=== PATIENT | male | born 1975 | race Caucasian/White ===

== ENCOUNTER 2016-11-08 20:05 | Inpatient (IN) | payer OTHER ==
[~2016-11-08] VITALS: Ht 165.1 cm; Wt 81.2 kg
--- NOTE | ~2016-11-08 | EKG ---
[address] [address] ELECTROCARDIOGRAM REPORT Name: MAJO NEELY Room #: 440-P ADM IN M.R.#: [id number] Admission: 11/08/16 Attend Phys: Ernestina Palomo MD Discharge: Date of : 73 Report #: [id number] THIS REPORT FOR: //name// [facility] ED Test Date: 2016-11-08 Test Time: 21:36:43 Pat Name: MAJO NEELY Department: Room: 440 P Gender: M Manager Hotel: [place] : 1975 Requested By: Coby Powell Order Number: [id number] MD: Wesley Cunningham Measurements Intervals [place] Rate: 87 P: 62 DE: 193 QRS: 54 QRSD: 87 T: 65 QT: 364 QTc: 438 Interpretive Statements Sinus rhythm RSR' in V1 or V2, probably normal variant No previous ECG available for comparison Electronically Signed On 11-10-2016 8:49:22 CDT by Wesley Cunningham [email or web address] <ELECTRONICALLY SIGNED> By: Wesley Cunningham MD 11/10/16 0849 [id number] 35 Wesley Cunningham MD /YVES
--- NOTE | ~2016-11-08 | S ---
[facility] [place] [address] [place] [address] SURGICAL PATH RPT PROCEDURE Name: MAJO NEELY Room #: 440-P [facility] IN M.R.#: [id number] Admission: 11/08/16 Date of : 73 Discharge: 11/10/16 Report #: [id number] Path Case #: [id number] PATHOLOGY REPORT COLLECTION DATE: 11/10/2016 RECEIVED DATE: 11/10/2016 SUBMITTING PHYS: Dr. Anjelica Russell OTHER PHYS: Dr. Chio Thorne SPECIMEN(S) RECEIVED: A.Peripheral smear * * * * * * * * * * * * FINAL DIAGNOSIS: Peripheral blood smear: - Mild to moderate thrombocytopenia. (See comment). COMMENT: Overall, the peripheral blood has mild to moderate thrombocytopenia. Hemoglobin and WBC counts are within the normal reference ranges. The WBC differential is without marked abnormalities. No platelet clumps or satellitosis is seen on scanning. The etiology of the findings is unclear based entirely on slide review. Potential causes of thrombocytopenia include immune and non-immune platelet destruction, drug and/or toxic exposures, consumption, dilution and primary bone marrow disorders. Correlation with clinical history and additional laboratory is recommended. PATHOLOGIST: Monika Johnston M.D. REPORT ELECTRONICALLY SIGNED BY: Monika Johnston M.D. DATE/TIME: 11/10/2016 23:10 * * * * * * * * * * * * MICROSCOPIC DESCRIPTION: CBC Data (11/10/16): WBC 8,300 /uL, RBC 4.19, hemoglobin 12.3 g/dL, hematocrit 37.0%, MCV 88.4 fL, MCH 29.4 pg, MCHC 33.3 g/dL, RDW 14.3% and platelet count 99,000 /uL. Automated white blood cell differential (11/08/16): segs 75.9%, lymphs 15.5%, monos 6.0%, eos 1.9% and basos 0.7%. Peripheral Blood Smear: Cytomorphological examination of the Ramirez stained peripheral blood smear confirms the provided data. Red blood cells are normocytic and are without significant anisopoikilocytosis. White blood cells are predominantly segmented neutrophils and are without significant dyspoiesis or significant left shift. Occasional hypersegmented [address] [address] SURGICAL PATH RPT PROCEDURE Name: MAJO NEELY Room #: 440-P [facility] IN M.R.#: [id number] Admission: 11/08/16 Date of : 73 Discharge: 11/10/16 Report #: [id number] Path Case #: [id number] neutrophils are noted. Lymphocytes are predominantly small, round, and mature appearing with condensed chromatin and scant cytoplasm with admixed large granular lymphocytes and rare reactive appearing lymphocytes. Monocytes are mature. Platelets are mild to moderately decreased in number and mainly normal in morphology with rare larger platelets noted. No platelet clumping or satellitosis is seen. CLINICAL HISTORY: 41 year old man with thrombocytopenia. Morphologic review of the peripheral blood smear is requested by the patient's physician. INITIAL CPT CODE(S): A; [place] Professional services performed by [facility] at [facility] [address] [place] [address] Technical services performed by [facility] at [address] [place] [address], [address], [place] [address]. [facility] [address] [place] [address] PHONE: [phone] DIRECTOR: Stephan Wellington M.D. * * * END OF REPORT * * *
--- NOTE | ~2016-11-08 | H ---
[facility] [place] [address] [place] [address] HISTORY AND PHYSICAL Name: MAJO NEELY Room #: 440-P [facility] IN M.R.#: [id number] Admission: 11/08/16 Attend Phys: Ernestina Palomo MD Discharge: 11/10/16 Date of : 73 Report #: [id number] THIS REPORT FOR: //name// CC: DAVY physician/PCP Jefe Kirby DATE OF SERVICE: 11/08/2016 ATTENDING PHYSICIAN: Dr. Jefe Kirby. PRIMARY CARE PHYSICIAN: Out of state. COMPLAINT: Chest pain. HISTORY OF PRESENT ILLNESS: The patient is a 41-year-old male who came into the ER complaining of chest pain. 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 He is from [place] and just passing through. He said while he was at rest today around 2:30, he started having chest pain, it is mostly in the left side of his chest and mid chest. He describes it as a pressure. It did radiate into his left neck area. He said it came on intermittently at first and then became more constant. ____. He did have some shortness of breath with it. He says the pain is worse with deep breathing. He called EMS and they gave him ___ mg of aspirin and then brought him into the ER. His initial cardiac workup in the ER was unremarkable, but he has been admitted for further evaluation. He also reported to me that he coughed up some blood last night, this was the first time this had occurred and he said there was at least a quarter-size amount of rust-colored sputum. He says he also has been noticing some blood in his stools. He said his stools have varied anywhere from black dark stools a few times within the last week as well as some brown stools, but he has noticed some bright red blood streaks on the outside of his stool and when he wipes with toilet paper. He is not on any blood thinners. He denies any history of GERD or DVT or PE. As far as his chest pain, he did have an episode of similar chest pain about a year ago, but it went away on its own and has not had any recurrence. PAST MEDICAL HISTORY: None. PAST SURGICAL HISTORY: None. ALLERGIES: No known drug allergies. HOME MEDICATIONS: None. SOCIAL HISTORY: The patient is a never smoker, denies any alcohol or drug use. He basically lives out of his truck and really does not have a home, but is located out of [place]. He is single. He leads a fairly sedentary lifestyle. [facility] [address] [place] [address] HISTORY AND PHYSICAL Name: MAJO NEELY Room #: [facility] IN M.R.#: [id number] Admission: 11/08/16 Attend Phys: Ernestina Palomo MD Discharge: 11/10/16 Date of : 73 Report #: [id number] He does not exercise. FAMILY HISTORY: Both his parents are alive and healthy. REVIEW OF SYSTEMS: The patient does have some sort of speech impediment. He also reported that today he started having some irritation of his left eye. He says it was very itchy. He denies any trauma to it or scratch that he is aware of. He denies any vision changes because of it and 12-point review of systems was reviewed with the patient, otherwise negative unless stated in the HPI. PHYSICAL EXAMINATION: GENERAL: The patient is an alert male, in no acute distress. VITAL SIGNS: Temperature is 37.2, heart rate 93, respirations 18, blood pressure is 157/99, oxygen 99% on room air. HEENT: PERRLA. On the left eye, the sclerae is icteric. He also has some redness around his lower eyelid. There is exudate. No visual abrasions or foreign particles. Oral mucosa is pink and moist. NECK: Supple, no JVD noted. CARDIAC: Normal S1, S2. No murmurs, rubs or gallops. RESPIRATORY: Breath sounds are clear bilaterally. No wheezing or rhonchi. Breathing is nonlabored. ABDOMEN: Soft, nontender, nondistended with positive bowel sounds. There is no reproducible chest wall pain either. VASCULAR: No edema noted. Pedal pulses are 2+. NEUROLOGIC: The patient is alert. He is oriented x 3. Speech is with an impediment. It is difficult to tell if he has some mild mental retardation, but he will follow all commands and moves all extremities equally. No focal weakness noted. LABORATORY DATA AND DIAGNOSTICS: WBC is 9.2, hemoglobin 13.3, platelets 125. Sodium is 142, potassium 3.5, BUN 11, creatinine 1.1, glucose 98. LFTs are within normal limits. Troponin is negative x 2 sets and chest x-ray showed no acute findings and CT angio of the chest showed no pneumonia or pleural effusion. There is no PE. There is minimal lower lobe atelectasis. There is prominent aortopulmonary window and mediastinal lymph nodes, which may be reactive in nature. EKG showing sinus rhythm. ASSESSMENT AND PLAN: 1. Chest pain: So far, his cardiac workup has been unremarkable including 2 negative troponins and EKG showing no ischemic changes. He does not have any history of coronary artery disease. ____ he may be having some GI bleeding symptoms. We will go ahead and consult GI for further evaluation. We will try a GI cocktail and start him on PPI. Continue with baby aspirin daily. He has never had any cardiac testing. If he is continuing to have pain, we will probably keep him through Thursday to do a stress test. 2. Possible gastrointestinal bleed: The patient reports some blood in his [facility] [address] [place] [address] HISTORY AND PHYSICAL Name: MAJO NEELY Room #: 440-P [facility] IN M.R.#: [id number] Admission: 11/08/16 Attend Phys: Ernestina Palomo MD Discharge: 11/10/16 Date of : 73 Report #: [id number] stools for the last few weeks as well as black stools on a few occasions. He is not on any blood thinners. His hemoglobin is 13.3. We will go ahead and consult GI, start PPI. 3. Left eye conjunctivitis: We will start some antibiotic eyedrops. 4. Deep venous thrombosis prophylaxis, place sequential compression devices. We will continue to follow the patient closely throughout the hospitalization and make changes based on clinical status. <ELECTRONICALLY SIGNED> By: GURDEEP Burris 11/13/16 0109 [id number] [id number] GURDEEP Burris /nt
--- NOTE | ~2016-11-08 | HC ---
[facility] [address] [address] [place] [address] CONSULTATION Name: MAJO NEELY Room #: 440-P [facility] IN M.R.#: [id number] Admission: 11/08/16 Attend Phys: Jefe Kirby MD Discharge: Date of : 73 Report #: [id number] THIS REPORT FOR: //name// CC: Dave Calderon MD [facility] physician/PCP Jefe Kirby DATE OF SERVICE: 11/09/2016 HISTORY OF PRESENT ILLNESS: The patient is a 41-year-old male with chest pain, admitted yesterday through the Emergency Room began about 2:30 yesterday afternoon, described the pain as left chest and substernal, at that time was rated 9/10 per the ER note. He was given aspirin at that time. 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 Cardiac workup has been negative. The patient underwent a chest x-ray initially, which was normal. He then underwent a CT chest PE protocol, which showed minimal lower lobe atelectasis, no evidence of pneumonia, pneumothorax or pleural effusion, no evidence of pulmonary edema, highly prominent aortopulmonary window with mediastinal lymph nodes may be reactive in nature. He is feeling better today. He denies any significant history of reflux. He does report some intermittent dysphagia. No previous history of upper endoscopy. He reports his bowel movements have been normal other than a small amount of bright red blood with wiping at times. No previous history of endoscopy, no family history of colon cancer. PAST MEDICAL HISTORY: None. MEDICATIONS AT HOME: None. ALLERGIES: No known drug allergies. REVIEW OF SYSTEMS: As per HPI. SOCIAL HISTORY: He denies any tobacco or alcohol use. FAMILY HISTORY: Negative for colon cancer or inflammatory bowel disease. PHYSICAL EXAMINATION: VITAL SIGNS: Temperature is 36.5, pulse 70, blood pressure 116/68 and respiratory rate is 16. GENERAL: He is alert and oriented x 3 in no acute distress. HEENT: Sclerae nonicteric. Oropharynx clear. NECK: Supple, without lymphadenopathy. HEART: Regular rate and rhythm. CHEST: Clear to auscultation bilaterally. ABDOMEN: Soft, nontender, nondistended, normoactive bowel sounds. EXTREMITIES: No cyanosis, clubbing or edema. [facility] [address] [place] [address] CONSULTATION Name: MAJO NEELY Room #: 440-P ADM IN .R.#: [id number] Admission: 11/08/16 Attend Phys: Jefe Kirby MD Discharge: Date of : 73 Report #: [id number] LABORATORY DATA: WBC 7.9, hemoglobin 12.5, platelet count is 111. Sodium 142, potassium 3.5, chloride 104, bicarb 30, BUN 11, creatinine 1.1, glucose 98, total bilirubin 0.3, AST is 22, ALT is 36, alkaline phosphatase 101. Troponin less than 0.04 x 3. Albumin 3.5. ASSESSMENT AND PLAN: Chest pain. Cardiac and pulmonary workup had been negative. This may be secondary to gastroesophageal reflux disease. The patient may have esophagitis, he does report intermittent dysphagia. I agree with PPI therapy on a daily basis. 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 Since this is not an emergency and he is not bleeding at this time, I would recommend continuing PPI therapy, have the patient follow up with a feather drying machine operator in [place] when he arrives home for possible EGD at later date. Okay with discharge today. Thank you for allowing me to participate in his care. By: [id number] Evelio Thorne MD /nt
--- NOTE | ~2016-11-08 | EKG ---
[address] [address] ELECTROCARDIOGRAM REPORT Name: MAJO NEELY Room #: 440-P ADM IN M.R.#: [id number] Admission: 11/08/16 Attend Phys: Ernestina Palomo MD Discharge: Date of : 73 Report #: [id number] THIS REPORT FOR: //name// [facility] ED Test Date: 2016-11-08 Test Time: 20:04:13 Pat Name: MAJO NEELY Department: Room: 440 Gender: M Hearing Aid Assembly Supervisor: Kiana GRADY : 1975 Requested By: Coby Powell Order Number: [id number] MD: Wesley Cunningham Measurements Intervals [place] Rate: 98 P: 76 TN: 191 QRS: 62 QRSD: 89 T: 57 QT: 344 QTc: 440 Interpretive Statements Sinus rhythm RSR' in V1 or V2, probably normal variant No previous ECG available for comparison Electronically Signed On 11-10-2016 8:48:25 CDT by Wesley Cunningham [email or web address] <ELECTRONICALLY SIGNED> By: Wesley Cunningham MD 11/10/16 0848 03 03 Wesley Cunningham MD /YVES
[2016-11-08 20:05] VITALS: BP 157/99
[2016-11-08 20:22] LABS: BASOPHILS 0.7 % (0.0-2.0); EOSINOPHILS 1.9 % (0.0-3.0); HEMATOCRIT 39.4 % (42.0-52.0); HEMOGLOBIN 13.3 gm/dL (14.0-18.0); LYMPHOCYTES 15.5 % (24.0-44.0); MANUAL DIFF NO; MCH 29.5 pg (26.0-34.0); MCHC 33.7 g/dL (28.0-37.0); MCV 87.5 fL (80.0-100.0); PLATELET COUNT 125 thou/uL (150-400); POLYS 75.9 % (36.0-66.0); RDW 13.9 % (10.5-14.5); WBC 9.2 thou/uL (4.0-11.0)
[2016-11-08 20:36] LABS: APTT 25.8 Seconds (24.5-32.8); PROTIME 10.5 Seconds (9.3-11.4)
[2016-11-08 20:38] LABS: ANION GAP 8 mmol/L (7-16); BUN 11 mg/dL (7-18); CALCIUM 8.2 mg/dL (8.5-10.1); CHLORIDE 104 mmol/L (98-107); CO2 30 mmol/L (21-32); CREATININE 1.1 mg/dL (0.7-1.3); GLUCOSE 98 mg/dL (74-106); POTASSIUM 3.5 mmol/L (3.5-5.1); SODIUM 142 mmol/L (136-145)
[2016-11-08 20:43] LABS: ALBUMIN 3.5 g/dL (3.4-5.0); ALKALINE PHOSPHATASE 101 U/L (46-116); NT-PRO BRAIN NAT PEPTIDE 36 pg/mL (<300); SGOT 22 U/L (15-37); SGPT 36 U/L (30-65); TOTAL BILIRUBIN 0.3 mg/dL (<0.1-1.0); TOTAL PROTEIN 7.4 g/dL (6.4-8.2); TROPONIN-I < 0.04 ng/mL (<0.04-0.07)
[2016-11-08 22:38] VITALS: BP 127/71
[2016-11-08 23:03] VITALS: BP 135/70
[2016-11-09 03:40] VITALS: BP 124/68
[2016-11-09 04:16] LABS: HEMATOCRIT 37.2 % (42.0-52.0); HEMOGLOBIN 12.5 gm/dL (14.0-18.0); MCH 29.7 pg (26.0-34.0); MCHC 33.5 g/dL (28.0-37.0); MCV 88.5 fL (80.0-100.0); RBC 4.21 mil/uL (4.50-6.00); RDW 14.1 % (10.5-14.5); WBC 7.9 thou/uL (4.0-11.0)
[2016-11-09 04:43] LABS: CHOLESTEROL 205 mg/dL (<200); HDL CHOLESTEROL 33 mg/dL (>40); LDL CHOLESTEROL 134 mg/dL (<100); TC:HDL 6.2 Ratio (Not establshd); TRIGLYCERIDE 194 mg/dL (<150); VLDL 39 mg/dL (<40)
[2016-11-09 04:55] LABS: SERUM ASSESSMENT Clear
[2016-11-09 08:00] VITALS: BP 116/68
[2016-11-09 16:00] VITALS: BP 129/64
[2016-11-09 19:35] VITALS: BP 124/81
[2016-11-10 05:00] VITALS: BP 136/77
[2016-11-10 06:11] LABS: HEMOGLOBIN 12.3 gm/dL (14.0-18.0); MCH 29.4 pg (26.0-34.0); MCHC 33.3 g/dL (28.0-37.0); MCV 88.4 fL (80.0-100.0); RBC 4.19 mil/uL (4.50-6.00); RDW 14.3 % (10.5-14.5); WBC 8.3 thou/uL (4.0-11.0)
[2016-11-10 06:23] LABS: ALBUMIN 2.8 g/dL (3.4-5.0); CALCIUM 7.3 mg/dL (8.5-10.1); CREATININE 1.1 mg/dL (0.7-1.3); POTASSIUM 3.9 mmol/L (3.5-5.1); TOTAL BILIRUBIN 0.2 mg/dL (<0.1-1.0); TOTAL PROTEIN 6.1 g/dL (6.4-8.2)
[2016-11-10] MEDS ORDERED: PROTONIX40 M1 PO (09:09)
[2016-11-10 09:29] VITALS: BP 136/77
[2016-11-10 10:01] LABS: ABSOLUTE RETIC COUNT 0.0511 10^6/uL; OBSERVED RETIC COUNT 1.13 % (0.6-2.6)
[2016-11-10 10:14] LABS: % SATURATION 26 % (20-39); IRON 61 ug/dL (65-175); TIBC 239 ug/dL (250-450); UIBC 178 ug/dL
[2016-11-10 10:39] LABS: FOLIC ACID 3.2 ng/mL (8.6-58.9); TSH 2.095 uIU/mL (0.358-3.740)
[2016-11-10 14:08] LABS: TESTOSTERONE* 468 ng/dL (348-1197)
[2016-11-10 15:10] LABS: HIV ANTIBODY Non Reactive (Non Reactive)
[2016-11-12 07:21] LABS: HEPATITIS C VIRUS AB <0.1 (0.0-0.9)
[2016-11-13 10:12] LABS: A/G RATIO 1.1 (0.7-1.7); ALBUMIN 3.1 g/dL (2.9-4.4); ALPHA 1 0.1 g/dL (0.0-0.4); ALPHA 2 0.7 g/dL (0.4-1.0); BETA 1.2 g/dL (0.7-1.3); GAMMA 0.8 g/dL (0.4-1.8); M-SPIKE Not Observed g/dL (Not Observed)
== END 2016-11-10 11:23 | disposition home or self-care (01) | DRG 313 ==
LOC: ER 20:05 → 4S 22:11 → EROBS 22:11 → 4S 22:38
PROVIDERS: Emergency Medicine; Hospitalist; Internal Medicine Hematology & Oncology; Nurse Practitioner Acute Care
DX: R07.89 Other chest pain (principal); H10.9 Unspecified conjunctivitis; K21.9 Gastro-esophageal reflux disease without esophagitis; R13.10 Dysphagia, unspecified; D69.6 Thrombocytopenia, unspecified; D64.9 Anemia, unspecified
CPT/HCPCS: 10100